=== PATIENT | male | born 1955 | race Hispanic/Latino ===

== ENCOUNTER 2017-01-27 06:54 | Day surgery (SDC) | payer OTHER ==
[2017-01-27] MEDS ORDERED: Lactated Ringer's 500 ML IV SCH (07:45)
[2017-01-27] MEDS ORDERED: Propofol 10 mg/ml Inj (20 ML) ONE ×2 (07:49→08:34)
--- NOTE | 2017-01-27 08:14 | CP.SDSHP ---
Same Day Surgery H & P - History Proposed Procedure: colonoscopy Pre-Op Diagnosis: h/o multiple colon polyps - Previous Medical/Surgical History Cardiac: Hypertension, Other (hypercholesterolemia, Gerd, ) Neuro: Backaches Misc: Other (DJD, Diverticulosis, ) Previous Surgical History: Right THR. Sinus surgery - Allergies Allergies: Allergies No Known Allergies Allergy (Verified 01/27/17 07:21) - Physical Exam Vital Signs: Vital Signs 01/27/17 07:01 Temperature 97.3 F L Pulse Rate 73 Respiratory 19 Rate Blood Pressure 142/77 O2 Sat by Pulse 98 Oximetry Mental Status: Alert & Oriented x3 Neuro: WNL Heart: WNL Lungs: WNL GI: WNL - Impression Impression: h/o colon polyps Pt. Evaluated Today:Candidate for Anesthesia & Procedure: Yes - Date & Time Date: 01/27/17 Time: 08:13 Short Stay Discharge - Short Stay Discharge Admitting Diagnosis/Reason for Visit: IRON DEFICIENCY ANEMIA, COLON POLYPS Disposition: HOME/ ROUTINE
[2017-01-27 10:56] VITALS: PULSE 68; TEMP 97; O2SAT 100
[2017-01-27 10:57] VITALS: BP 116/60; RESP 20
== END 2017-01-27 10:15 | disposition home or self-care (01) ==
LOC: C.ENDO 06:54
PROVIDERS: ATTEND Internal Medicine Gastroenterology
DX: K63.5 Polyp of colon (principal); K64.8 Other hemorrhoids; Z86.010 Personal history of colon polyps; D12.4 Benign neoplasm of descending colon
CPT/HCPCS: 45380; 88305; J2001; J2704; J7120

== ENCOUNTER 2017-05-01 09:22 | Emergency (ER) | payer OTHER ==
[2017-05-01 09:30] VITALS: BMI 24.3
[2017-05-01] MEDS ORDERED: Albuterol-Ipratrop 3 mg / 0.5 (3 ml) UD ONE (09:56)
[2017-05-01] MEDS ORDERED: Albuterol-Ipratrop 3 mg / 0.5 (3 ml) UD IH STA (10:07)
[2017-05-01] MEDS ORDERED: MethylPREDNISolone 40 mg Vial IVP STA (10:10)
--- NOTE | 2017-05-01 10:19 | C.PDOC ---
History Of Present Illness 62 year old male with PMHx of pneumonia presents to the ED for evaluation of cough, fever, diaphoresis for the past 2 weeks. Patient reports he was sent home from work on Thursday, felt better after and yesterday the symptoms returned. Patient denies CP, nausea, vomit, diarrhea, abdominal pain, recent travel, sick contacts. Time Seen by Provider: 05/01/17 09:42 Chief Complaint (Nursing): Shortness Of Breath History Per: Patient History/Exam Limitations: no limitations Onset/Duration Of Symptoms: Days Current Symptoms Are (Timing): Still Present Initiating Event: Upper Respiratory Illness Quality: Tightness Exacerbating Factor(s): Coughing Current Respiratory Medications: See Home Med List Recent travel outside of the [place]: No Additional History Per: Patient Past Medical History Reviewed: Historical Data, Nursing Documentation, Vital Signs Vital Signs: Last Vital Signs Temp 98 F 05/01/17 09:44 Pulse 95 H 05/01/17 09:44 Resp 16 05/01/17 09:44 BP 168/80 H 05/01/17 09:44 Pulse Ox 97 05/01/17 09:44 - Medical History PMH: Colonic Polyps, HTN, Hypercholesterolemia, Pneumonia, Rheumatoid Arthritis Denies: Chronic Kidney Disease Surgical History: No Surg Hx - [facility] Procedures ENDOSC POLYPECTOMY OF LG INTEST (09/11/14) ENDOSCOP DEST OF OTH LESION OR TISU OF LRG INTESTN (09/11/14) Family History: States: Unknown Family Hx - Social History Hx Alcohol Use: Yes Hx Substance Use: No - Immunization History Hx Tetanus Toxoid Vaccination: No Hx Influenza Vaccination: Yes (10/2013) Hx Pneumococcal Vaccination: Yes (10/2013) Review Of Systems Constitutional: Positive for: Fever, Sweats. Negative for: Chills ENT: Negative for: Nose Discharge, Throat Pain, Throat Swelling Cardiovascular: Negative for: Chest Pain Respiratory: Positive for: Cough, Shortness of Breath Gastrointestinal: Negative for: Nausea, Vomiting, Abdominal Pain Skin: Negative for: Rash Neurological: Negative for: Weakness, Numbness Physical Exam - Physical Exam Appears: Non-toxic, No Acute Distress Skin: Normal Color, Warm, Dry Head: Atraumatic, Normacephalic Eye(s): bilateral: Normal Inspection Nose: No Discharge Oral Mucosa: Moist Neck: Normal ROM, Supple Chest: Symmetrical Cardiovascular: Rhythm Regular, No Murmur Respiratory: No Rales, No Rhonchi, Wheezing (scant B/L bases ) Gastrointestinal/Abdominal: Soft, No Tenderness, No Guarding, No Rebound Extremity: Normal ROM, No Tenderness, No Swelling Neurological/Psych: Oriented x3, Normal Speech Gait: Steady ED Course And Treatment O2 Sat by Pulse Oximetry: 97 (On RA) Pulse Ox Interpretation: Normal Medical Decision Making Medical Decision Making: Plan: * EKG * CXR * Duoneb 3 ml IH * Solumedrol 80 mg IVP * Nebulizer treatment Disposition - Disposition
[2017-05-01] MEDS ORDERED: MethylPREDNISolone 40 mg Vial ONE (10:23)
--- NOTE | 2017-05-01 10:25 | C.PDOC ---
History Of Present Illness 62 year old male with PMHx of pneumonia presents to the ED for evaluation of cough, fever, diaphoresis for the past 2 weeks. Patient reports he was sent home from work on Thursday, felt better after and yesterday the symptoms returned. Patient denies CP, nausea, vomit, diarrhea, abdominal pain, recent travel, sick contacts. Time Seen by Provider: 05/01/17 09:42 Chief Complaint (Nursing): Shortness Of Breath History Per: Patient History/Exam Limitations: no limitations Onset/Duration Of Symptoms: Days Current Symptoms Are (Timing): Still Present Initiating Event: Upper Respiratory Illness Quality: Tightness Exacerbating Factor(s): Coughing Current Respiratory Medications: See Home Med List Recent travel outside of the [place]: No Additional History Per: Patient Past Medical History Reviewed: Historical Data, Nursing Documentation, Vital Signs Vital Signs: Last Vital Signs Temp 98 F 05/01/17 09:44 Pulse 95 H 05/01/17 09:44 Resp 16 05/01/17 09:44 BP 168/80 H 05/01/17 09:44 Pulse Ox 97 05/01/17 11:31 - Medical History PMH: Colonic Polyps, HTN, Hypercholesterolemia, Pneumonia, Rheumatoid Arthritis Denies: Chronic Kidney Disease Surgical History: No Surg Hx - [facility] Procedures ENDOSC POLYPECTOMY OF LG INTEST (09/11/14) ENDOSCOP DEST OF OTH LESION OR TISU OF LRG INTESTN (09/11/14) Family History: States: Unknown Family Hx - Social History Hx Alcohol Use: Yes Hx Substance Use: No - Immunization History Hx Tetanus Toxoid Vaccination: No Hx Influenza Vaccination: Yes (10/2013) Hx Pneumococcal Vaccination: Yes (10/2013) Review Of Systems Constitutional: Positive for: Fever, Sweats. Negative for: Chills Cardiovascular: Negative for: Chest Pain Respiratory: Positive for: Cough. Negative for: Shortness of Breath Gastrointestinal: Negative for: Nausea, Vomiting, Abdominal Pain Skin: Negative for: Rash Neurological: Negative for: Weakness, Numbness, Headache Physical Exam - Physical Exam Appears: Non-toxic, No Acute Distress Skin: Normal Color, Warm, Dry, No Rash Head: Atraumatic, Normacephalic Eye(s): bilateral: Normal Inspection Ear(s): Bilateral: Normal Nose: No Discharge Oral Mucosa: Moist Throat: Normal, No Erythema, No Exudate Neck: Normal ROM, Supple Chest: Symmetrical Cardiovascular: Rhythm Regular, No Murmur Respiratory: No Decreased Breath Sounds, No Rales, No Rhonchi, Wheezing (scant B /L bases ) Gastrointestinal/Abdominal: Soft, No Tenderness, No Guarding, No Rebound Extremity: Normal ROM, No Tenderness, No Swelling Neurological/Psych: Oriented x3, Normal Motor Gait: Steady ED Course And Treatment - Laboratory Results Result Diagrams: 05/01/17 10:22 05/01/17 10:22 O2 Sat by Pulse Oximetry: 97 (On RA) Pulse Ox Interpretation: Normal - Radiology CXR: Viewed By Me, Read By Radiologist CXR Interpretation: Yes: No Acute Disease. No: Infiltrates Medical Decision Making Medical Decision Making: Plan: * EKG * CXR * Duoneb 3 ml IH * Solumedrol 80 mg IVP * Nebulizer treatment On re-exam, the patient reports improvement of symptoms. Lungs are CTA, heart is RRR, abdomen is soft, non-tender and tolerating Po well. Ambulatory in the ED with steady gait. Follow up with the medical doctor/clinic within 1-2 days without fail. Return if worsened. Disposition - Disposition Referrals: [facility] [Outside] Disposition: HOME/ ROUTINE Disposition Time: 11:32 Condition: FAIR Additional Instructions: Follow up with the medical doctor/clinic within 1-2 days without fail. Return if worsened. Prescriptions: Albuterol HFA [Ventolin HFA 90 mcg/actuation (8 g)] 1 puff IH Q6 PRN #1 inhaler PRN Reason: Wheezing Azithromycin [Zithromax] 250 mg PO DAILY #6 tab Benzonatate [Tessalon Perles] 200 mg PO TID PRN #30 sgl PRN Reason: Cough predniSONE [Prednisone] 20 mg PO BID #10 tab Spacer, Inhalation [Aerochamber] 1 dev IH Q4 #1 dev Instructions: Acute Bronchitis Forms: [facility] (Urdu) - Clinical Impression Clinical Impression: Bronchitis - PA / TRANSITION MGR / Resident Statement MD/DO has reviewed & agrees with the documentation as recorded. - Scribe Statement The provider has reviewed the documentation as recorded by the Scribe Steven Terry All medical record entries made by the Scribe were at my direction and personally dictated by me. I have reviewed the chart and agree that the record accurately reflects my personal performance of the history, physical exam, medical decision making, and the department course for this patient. I have also personally directed, reviewed, and agree with the discharge instructions and disposition.
[2017-05-01 10:31] LABS: BASO % 0.6 % (0.0-2.0); EOS # 0.1 K/uL (0.0-0.7); EOS % 1.6 % (0.0-4.0); HEMOGLOBIN 12.5 g/dL (12.0-18.0); LYMPH # 1.6 K/uL (1.0-4.3); LYMPH % 37.8 % (20.0-40.0); MEAN CELL VOLUME 85.4 fL (80.0-94.0); MEAN PLATELET VOLUME 7.3 fL (7.2-11.7); MONO # 0.4 K/uL (0.0-0.8); NEUT # 2.1 K/uL (1.8-7.0); RBC 4.32 Mil/uL (4.40-5.90); RED CELL DISTRIBUTION WIDTH 13.4 % (11.5-14.5); WHITE BLOOD COUNT 4.2 K/uL (4.8-10.8)
--- NOTE | 2017-05-01 10:31 | RAD ---
HISTORY: SOB COMPARISON: 03/18/2017 TECHNIQUE: Chest PA and lateral FINDINGS: LUNGS: No active pulmonary disease. PLEURA: No significant pleural effusion identified. No pneumothorax apparent. CARDIOVASCULAR: Normal. OSSEOUS STRUCTURES: No significant abnormalities. VISUALIZED UPPER ABDOMEN: Normal. OTHER FINDINGS: None. IMPRESSION: No active disease.
[2017-05-01 10:37] LABS: ALB/GLOB RATIO 1.1 (1.0-2.1); ALBUMIN 4.3 g/dL (3.5-5.0); ALT/SGPT 37 U/L (21-72); AST/SGOT 35 U/L (17-59); BLOOD UREA NITROGEN 17 mg/dL (9-20); CALCIUM 9.1 mg/dl (8.6-10.4); GFR AFRICAN-AMERICAN > 60; GFR NON-AFRICAN AMERICAN > 60
[2017-05-01 11:43] VITALS: BP 165/72; PULSE 91; RESP 18; TEMP 98
[2017-05-02 22:51] VITALS: O2SAT 97
== END 2017-05-01 12:14 | disposition home or self-care (01) ==
LOC: C.ER 09:22
DX: J40 Bronchitis, not specified as acute or chronic (principal); E78.00 Pure hypercholesterolemia, unspecified; I10 Essential (primary) hypertension; M06.9 Rheumatoid arthritis, unspecified
CPT/HCPCS: 71046; 80053; 85025; 96374; 99284; J2920

== ENCOUNTER 2017-07-08 08:05 | Day surgery (SDC) | payer OTHER ==
--- NOTE | 2017-07-08 10:31 | CP.SDSHP ---
Same Day Surgery H & P - History Proposed Procedure: egd Pre-Op Diagnosis: iron deficiency anemia of unknown etiology - Previous Medical/Surgical History Cardiac: Hypertension, Other (hypercholesterolemia, ) Misc: Anemia, Other (gerd, colon polyps, diverticulosis) Previous Surgical History: Right THR-2014 - Allergies Allergies: Allergies No Known Allergies Allergy (Verified 05/01/17 09:25) - Physical Exam Vital Signs: Vital Signs 07/08/17 09:34 Temperature 97 F L Pulse Rate 87 Respiratory 19 Rate Blood Pressure 145/79 O2 Sat by Pulse 98 Oximetry Mental Status: Alert & Oriented x3 Neuro: WNL Heart: WNL Lungs: WNL GI: WNL - {Optional Preform as Required} Ortho: Other (Right hip scar) - Impression Impression: iron deficiency anemia Pt. Evaluated Today:Candidate for Anesthesia & Procedure: Yes - Date & Time Date: 07/08/17 Time: 10:31 Short Stay Discharge - Short Stay Discharge Admitting Diagnosis/Reason for Visit: H/O COLON POLYPS / EPIGASTRIC PAIN / ANEMIA Disposition: HOME/ ROUTINE
[2017-07-08] MEDS ORDERED: Pantoprazole 40 mg EC Tab PO STA (10:32)
[2017-07-08] MEDS ORDERED: Propofol 10 mg/ml Inj (20 ML) ONE (10:32)
[2017-07-08] MEDS ORDERED: Midazolam 2 MG/2 ML VIAL ONE (10:33)
[2017-07-08] MEDS ORDERED: Lactated Ringer's 500 ML IV SCH (10:45)
[2017-07-08 11:10] VITALS: TEMP 98.6
[2017-07-08 11:32] VITALS: O2SAT 100
[2017-07-08 12:03] VITALS: BP 127/78; PULSE 77; RESP 14
== END 2017-07-08 11:45 | disposition home or self-care (01) ==
LOC: C.ENDO 08:05
PROVIDERS: ATTEND Internal Medicine Gastroenterology
DX: D50.9 Iron deficiency anemia, unspecified (principal); R10.13 Epigastric pain; Z86.010 Personal history of colon polyps; I10 Essential (primary) hypertension; K29.70 Gastritis, unspecified, without bleeding; K44.9 Diaphragmatic hernia without obstruction or gangrene; K21.9 Gastro-esophageal reflux disease without esophagitis; E78.00 Pure hypercholesterolemia, unspecified; K22.10 Ulcer of esophagus without bleeding
CPT/HCPCS: 43239; 88305; J2250; J2704; J7120

== ENCOUNTER 2018-03-05 10:03 | Emergency (ER) | payer OTHER ==
[2018-03-05 10:04] VITALS: BMI 24.3
--- NOTE | 2018-03-05 11:05 | RAD ---
PROCEDURE: Radiographs of the Right Shoulder HISTORY: injury COMPARISON: Chest x-ray performed 01/04/18 FINDINGS: BONES: No acute displaced fracture. The distal clavicle and underlying ribs appear intact. JOINTS: No acute dislocation. Acromioclavicular arthropathy. Glenohumeral joint space narrowing. SOFT TISSUES: Soft tissues appear unremarkable. No evidence of radiopaque foreign body. IMPRESSION: Acromioclavicular arthropathy. Glenohumeral joint space narrowing. No acute displaced fracture or dislocation evident. If symptoms persist or if there is continued clinical concern, x-ray follow-up in 7-10 days should be considered.
[2018-03-05 11:10] VITALS: BP 161/91; PULSE 83; RESP 16; TEMP 97.2
--- NOTE | 2018-03-05 11:10 | C.PDOC ---
History Of Present Illness 62 year old male presents to the ED for evaluation of right shoulder pain which began today. 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 He states his pain is worse with movement. He denies falls/injury, chest pain, shortness of breath. Patient is right-hand dominant. Chief Complaint (Nursing): Upper Extremity Problem/Injury History Per: Patient History/Exam Limitations: no limitations Onset/Duration Of Symptoms: Hrs Current Symptoms Are (Timing): Still Present Quality: "Pain" Pain Scale Rating Of: 3 Additional History Per: Patient Past Medical History Reviewed: Historical Data, Nursing Documentation, Vital Signs Vital Signs: Last Vital Signs Temp 98.7 F 03/05/18 10:10 Pulse 91 H 03/05/18 10:10 Resp 18 03/05/18 10:10 BP 151/82 H 03/05/18 10:10 Pulse Ox 96 03/05/18 10:10 - Medical History PMH: Anemia, Colonic Polyps, HTN, Hypercholesterolemia, Pneumonia, Rheumatoid Arthritis Denies: Chronic Kidney Disease Surgical History: Endoscopy - [facility] Procedures ENDOSC POLYPECTOMY OF LG INTEST (09/11/14) ENDOSCOP DEST OF OTH LESION OR TISU OF LRG INTESTN (09/11/14) Family History: States: Unknown Family Hx - Social History Hx Alcohol Use: Yes Hx Substance Use: No - Immunization History Hx Tetanus Toxoid Vaccination: No Hx Influenza Vaccination: Yes (10/2013) Hx Pneumococcal Vaccination: Yes (10/2013) Review Of Systems Cardiovascular: Negative for: Chest Pain Respiratory: Negative for: Shortness of Breath Musculoskeletal: Positive for: Shoulder Pain (right ) Physical Exam - Physical Exam Appears: Non-toxic, No Acute Distress Skin: Normal Color, Warm, Dry Head: Atraumatic, Normacephalic Eye(s): bilateral: Normal Inspection Oral Mucosa: Moist Extremity: Normal ROM, Tenderness (point, to right anterior shoulder ), Capillary Refill (less than 2 seconds ), No Swelling Pulses: Left Radial: Normal, Right Radial: Normal Neurological/Psych: Oriented x3, Normal Speech, Normal Cognition, Normal Sensation ED Course And Treatment O2 Sat by Pulse Oximetry: 96 (on RA ) - Other Rad right shoulder XR X-Ray: Viewed By Me, Read By Radiologist Interpretation: PROCEDURE: Radiographs of the Right Shoulder. HISTORY: injury. COMPARISON: Chest x-ray performed 01/04/18. FINDINGS: BONES: No acute displaced fracture. The distal clavicle and underlying ribs appear intact. JOINTS: No acute dislocation. Acromioclavicular arthropathy. Glenohumeral joint space narrowing. SOFT TISSUES: Soft tissues appear unremarkable. No evidence of radiopaque foreign body. IMPRESSION: Acromioclavicular arthropathy. Glenohumeral joint space narrowing. No acute displaced fracture or dislocation evident. If symptoms persist or if there is continued clinical concern, x-ray follow-up in 7-10 days should be considered. Medical Decision Making Medical Decision Making: Progress: Right shoulder XR ordered and reviewed. Motrin PO given. Disposition Counseled Patient/Family Regarding: Studies Performed, Diagnosis, Need For Followup - Disposition Disposition: HOME/ ROUTINE Disposition Time: 11:08 Condition: GOOD Additional Instructions: LAN BARNES, thank you for letting us take care of you today. Your provider was Omaira Perez MD and you were treated for SHOULDER PAIN. The emergency medical care you received today was directed at your acute symptoms. If you were prescribed any medication, please fill it and take as directed. It may take several days for your symptoms to resolve. Return to the Emergency Department if your symptoms worsen, do not improve, or if you have any other problems. Please contact [facility] for follow up visit in 2 days. Bring any paperwork you were given at discharge with you along with any medications you are taking to your follow up visit. Our treatment cannot replace ongoing medical care by a primary care provider outside of the emergency department. [facility]. Instructions: Muscle Strain (DC) Forms: General Discharge Instructions, [employer] [facility] (Romansh) - POA Present On Arrival: None - Clinical Impression Clinical Impression: Shoulder strain - Scribe Statement The provider has reviewed the documentation as recorded by the Scribe (Michelle Bonilla) Provider Attestation: All medical record entries made by the Scribe were at my direction and personally dictated by me. I have reviewed the chart and agree that the record accurately reflects my personal performance of the history, physical exam, medical decision making, and the department course for this patient. I have also personally directed, reviewed, and agree with the discharge instructions and disposition.
[2018-03-05 11:11] VITALS: O2SAT 96
--- NOTE | 2018-03-05 11:22 | C.PDOC ---
Chief Complaint (Nursing): Upper Extremity Problem/Injury Past Medical History Vital Signs: Last Vital Signs Temp 98.7 F 03/05/18 10:10 Pulse 91 H 03/05/18 10:10 Resp 18 03/05/18 10:10 BP 151/82 H 03/05/18 10:10 Pulse Ox 96 03/05/18 10:10 - Medical History PMH: Anemia, Colonic Polyps, HTN, Hypercholesterolemia, Pneumonia, Rheumatoid Arthritis Denies: Chronic Kidney Disease Surgical History: Endoscopy - [facility] Procedures ENDOSC POLYPECTOMY OF LG INTEST (09/11/14) ENDOSCOP DEST OF OTH LESION OR TISU OF LRG INTESTN (09/11/14) Family History: States: Unknown Family Hx - Social History Hx Alcohol Use: Yes Hx Substance Use: No - Immunization History Hx Tetanus Toxoid Vaccination: No Hx Influenza Vaccination: Yes (10/2013) Hx Pneumococcal Vaccination: Yes (10/2013) ED Course And Treatment O2 Sat by Pulse Oximetry: 96 Disposition - Disposition
== END 2018-03-05 11:13 | disposition home or self-care (01) ==
LOC: C.ER 10:03
DX: S46.911A Strain of unspecified muscle, fascia and tendon at shoulder and upper arm level, right arm, initial encounter (principal); X50.0XXA Overexertion from strenuous movement or load, initial encounter; Y92.238 Other place in hospital as the place of occurrence of the external cause; Y99.0 Civilian activity done for income or pay

== ENCOUNTER 2018-05-07 08:46 | Outpatient (CLI) | payer OTHER | END 2018-05-07 08:47 | disposition home or self-care (01) | LOC: C.LAB 08:46 | DX: M35.9 Systemic involvement of connective tissue, unspecified (principal); M75.51 Bursitis of right shoulder ==